=== PATIENT | female | born 1960 | race Caucasian/White ===

== ENCOUNTER 2017-09-02 07:38 | Emergency (ER) | payer OTHER ==
[2017-09-02 08:27] VITALS: BP 138/83
[2017-09-02] MEDS ORDERED: Albuterol/Ipratropium 3.0-0.5 MG/3 ML Neb Soln NEB ONE (09:02)
--- NOTE | 2017-09-02 09:04 | EDM.PDOC ---
ED HPI GENERAL MEDICAL PROBLEM - General Chief Complaint: General Stated Complaint: sinus pressure, allergies Time Seen by Provider: 09/02/17 08:18 Source of Information: Reports: Patient History Limitations: Reports: No Limitations - History of Present Illness INITIAL COMMENTS - FREE TEXT/NARRATIVE: Patient presents this morning to the emergency room with chronic complaints of sinusitis type symptoms. States she's had this current illness for approximately 1 month. She states that over the last week however she started to have fevers, some chills, and increasing pressure to the frontal and maxillary sinuses. Still she does state she's got some chronic seasonal allergies that she tells me are pretty much all year long. She also does tell me that she's had some asthma treatment in her history as well. She has no other complaints this morning. Onset: Other (over 1 month ago with worsening this week) Duration: Getting Worse Location: Reports: Face, Chest Quality: Reports: Ache, Pressure Severity: Moderate Associated Symptoms: Reports: cough w sputum, Diaphoresis, Fever/Chills, Shortness of Breath Frontal Headache Pain Score (Numeric/FACES): 4 - Related Data Allergies Allergy/AdvReac Type Severity Reaction Status Date / Time meclizine Allergy Cannot Verified 09/02/17 08:17 Remember Sulfa (Sulfonamide Allergy Hives Verified 09/02/17 08:17 Antibiotics) codeine AdvReac Nausea and Verified 09/02/17 08:17 Vomiting Home Meds: Home Meds Aspirin [Adult Low Dose Aspirin EC] 1 tab PO DAILY 12/12/14 [History] Hydrochlorothiazide 25 mg PO DAILY 12/12/14 [History] Metoprolol Tartrate [Lopressor] 1.5 tab PO BID 12/12/14 [History] Multivit-Min/FA/Lycopene/Lut [Centrum Silver] 1 tab PO DAILY 12/12/14 [History] metroNIDAZOLE [metroNIDAZOLE 0.75% Gel] 1 applic TOP DAILY 12/12/14 [History] ClonazePAM [KlonoPIN] 1 tab PO BID PRN 06/04/15 [History] Past Medical History Cardiovascular History: Reports: Hypertension Respiratory History: Reports: Asthma Other Respiratory History: borderline asthma. allergies Gastrointestinal History: Reports: Other (See Below) Other Gastrointestinal History: gastric reflux Musculoskeletal History: Reports: Arthritis Other Musculoskeletal History: arthritis - Past Surgical History HEENT Surgical History: Reports: Adenoidectomy, Tonsillectomy Female Surgical History: Reports: Tubal Ligation Social & Family History - Tobacco Use Smoking Status *Q: Never Smoker Years of Tobacco use: 14 Used Tobacco, but Quit: Yes Second Hand Smoke Exposure: Yes - Alcohol Use Days Per Week of Alcohol Use: 4 Number of Drinks Per Day: 2 Total Drinks Per Week: 8 - Recreational Drug Use Recreational Drug Use: No ED ROS GENERAL - Review of Systems Review Of Systems: See Below Constitutional: Reports: Fever, Chills, Diaphoresis HEENT: Reports: Ear Pain, Sinus Problem, Throat Pain Respiratory: Reports: Shortness of Breath Cardiovascular: Reports: No Symptoms Endocrine: Reports: No Symptoms GI/Abdominal: Reports: No Symptoms : Reports: No Symptoms Musculoskeletal: Reports: Neck Pain Skin: Reports: No Symptoms Neurological: Reports: Headache Psychiatric: Reports: No Symptoms Hematologic/Lymphatic: Reports: No Symptoms Immunologic: Reports: No Symptoms ED EXAM, GENERAL - Physical Exam Exam: See Below Exam Limited By: No Limitations General Appearance: Alert, WD/WN, No Apparent Distress Eye Exam: Bilateral Eye: EOMI, PERRL Ears: Normal TMs Nose: Normal Inspection Throat/Mouth: Normal Inspection, Normal Oropharynx Head: Atraumatic, Sinus Tenderness (maxillary and frontal tenderness) Neck: Normal Inspection, Supple, Non-Tender Respiratory/Chest: No Respiratory Distress, Lungs Clear, Normal Breath Sounds, No Accessory Muscle Use Cardiovascular: Normal Peripheral Pulses, Regular Rate, Rhythm, No Edema, No Gallop, No JVD, No Murmur, No Rub GI/Abdominal: Normal Bowel Sounds, Soft, Non-Tender Extremities: Normal Inspection, Normal Range of Motion, Non-Tender, No Pedal Edema, Normal Capillary Refill Neurological: Alert, Oriented, CN II-XII Intact, Normal Cognition, Normal Gait, Normal Reflexes, No Motor/Sensory Deficits Psychiatric: Normal Affect, Normal Mood Skin Exam: Warm, Dry, Intact, Normal Color, No Rash Lymphatic: No Adenopathy Course - Vital Signs Last Recorded V/S: Last Vital Signs Temp 36.2 C 09/02/17 07:45 Pulse 60 09/02/17 07:45 Resp 16 09/02/17 07:45 BP 138/83 09/02/17 07:45 Pulse Ox 97 09/02/17 07:45 - Orders/Labs/Meds Orders: Active Orders 24 hr Category Date Time Status INFLUENZA A+B AG SCREEN [RM] Stat Lab 09/02/17 08:31 Uncollected STREP SCRN A RAPID W CULT CONF [RM] Stat Lab 09/02/17 08:31 Uncollected Labs: Laboratory Tests 09/02/17 Range/Units 08:36 WBC 9.0 (4.0-10.0) x10^3/uL RBC 4.53 (4.00-5.50) x10^6/uL Hgb 13.9 (12.0-16.0) g/dL Hct 42.1 (33.0-47.0) % MCV 92.9 (78.0-93.0) fL MCH 30.7 (26.0-32.0) pg MCHC 33.0 (32.0-36.0) g/dL RDW Coeff of Jeri 13.2 (10.0-15.0) % Plt Count 256 (130-400) x10^3/uL Neut % (Auto) 63.4 (50.0-80.0) % Lymph % (Auto) 26.5 (25.0-50.0) % Conway % (Auto) 5.9 (2.0-11.0) % Eos % (Auto) 3.6 (0.0-4.0) % Baso % (Auto) 0.6 (0.2-1.2) % - Re-Assessments/Exams Free Text/Narrative Re-Assessment/Exam: 09/02/17 09:14 Review of CBC which does not indicate any sort of bacterial infection, rapid strep and influenza negative. Will have culture grown for the strep. Departure - Departure Time of Disposition: 09:00 Disposition: Home, Self-Care 01 Condition: Good Clinical Impression: Sinusitis chronic, frontal - Discharge Information Instructions: Sinusitis, Adult, [id number] Referrals: Roderick Rod PA-C [Primary Care Provider] - Additional Instructions: Stay well hydrated. We will call you with the strep culture results if antibiotic therapy is needed. Continue to use antihistamines or decongestants as needed including pseudaphed, zyrtec or claritin. You also should try a saline rinse or zackary pot. If you do this, do not use regular tap water. I have given you the prescription for augmentin. ONLY fill this if your symptoms continue to worsen, you begin to have worse fevers, chills, night sweats, or continued feeling of this going into your lungs. Please call us at any time with any questions or concerns. - Problem List & Annotations (1) Sinusitis chronic, frontal SNOMED Code(s): 92176336 Code(s): J32.1 - CHRONIC FRONTAL SINUSITIS Status: Acute Priority: Low Current Visit: Yes - Problem List Review Problem List Initiated/Reviewed/Updated: Yes - My Orders Last 24 Hours: My Active Orders 09/02/17 08:31 INFLUENZA A+B AG SCREEN [RM] Stat STREP SCRN A RAPID W CULT CONF [RM] Stat - Assessment/Plan Last 24 Hours: My Active Orders 09/02/17 08:31 INFLUENZA A+B AG SCREEN [RM] Stat STREP SCRN A RAPID W CULT CONF [RM] Stat Assessment:: acute sinusitis Plan: Stay well hydrated. We will call you with the strep culture results if antibiotic therapy is needed. Continue to use antihistamines or decongestants as needed including pseudaphed, zyrtec or claritin. You also should try a saline rinse or zackary pot. If you do this, do not use regular tap water. I have given you the prescription for augmentin. ONLY fill this if your symptoms continue to worsen, you begin to have worse fevers, chills, night sweats, or continued feeling of this going into your lungs. Please call us at any time with any questions or concerns.
== END 2017-09-02 09:45 | disposition home or self-care (01) ==
LOC: VM.ED 07:38
DX: J32.1 Chronic frontal sinusitis (principal); I10 Essential (primary) hypertension; J45.909 Unspecified asthma, uncomplicated; M19.90 Unspecified osteoarthritis, unspecified site; Z98.51 Tubal ligation status; Z98.890 Other specified postprocedural states; Z79.82 Long term (current) use of aspirin; Z79.899 Other long term (current) drug therapy; Z88.5 Allergy status to narcotic agent; Z88.2 Allergy status to sulfonamides; Z88.8 Allergy status to other drugs, medicaments and biological substances
CPT/HCPCS: 36415; 85025; 87081; 87804; 87880; 94640; 99283

== ENCOUNTER 2020-05-03 14:18 | Emergency (ER) | payer OTHER ==
[2020-05-03] MEDS ORDERED: Sodium Chloride 0.9% 10 ML Syringe FLUSH PRN (14:42)
--- NOTE | 2020-05-03 14:47 | CT ---
[id number] CT/CT Head Stroke Protocol EXAM: NONCONTRAST HEAD CT INDICATION: STROKE CODE. COMPARISON: September 21, 2017. DISCUSSION: There is an acute 6 x 4.5 x 3 cm intraparenchymal hemorrhage in the left frontal lobe with surrounding vasogenic edema and associated effacement of the left frontal sulci and rightward midline shift of about 6 mm anteriorly. Mild associated effacement of the frontal horn of the left lateral ventricle and to a lesser extent the frontal horn of the right lateral ventricle. No hydrocephalus, extra-axial collection or acute territorial infarct is identified. The orbits and paranasal sinuses are unremarkable. Results called at time of dictation. IMPRESSION: 1. Acute 6 x 4.5 x 3 cm intraparenchymal hemorrhage involving the left frontal lobe with resulting sulcal effacement and 6 mm rightward midline shift. Raymon Kendall MD 05/03/20 [id number] Thank you for allowing us to participate in the care of your patient.
[2020-05-03 14:52] LABS: ANION GAP 16.4 mmol/L (10-20); CHLORIDE,CL 101 mmol/L (98-107); SODIUM,NA 138 mmol/L (136-145)
[2020-05-03] MEDS ORDERED: niCARdipine HCl 25 MG in Sodium Chloride 0.9% 240 ML IV SCH (15:00)
--- NOTE | 2020-05-03 15:11 | EDM.PDOC ---
ED HPI GENERAL MEDICAL PROBLEM - General Chief Complaint: Neuro Symptoms/Deficits Stated Complaint: STROKE CODE Time Seen by Provider: 05/03/20 14:18 Source of Information: Reports: EMS, Family History Limitations: Reports: Altered Mental Status - History of Present Illness INITIAL COMMENTS - FREE TEXT/NARRATIVE: Patient presents to ER with altered mental status, stroke code. relates on Monday evening patient complained of a severe headache and has had lingering headache since. Yesterday, wasn't her normal self, felt like she was getting the flu. States wasn't as talkative as normal but not as confused as today. Slept much of day yesterday, did eat and take her pills. Does not think she has done either today. He had left the house for a while and when he came home, she couldn't communicate much at all. She was still up and able to ambulate but not answering questions right at all. She holds her hand to her head but doesn't answer questions appropriately and answers only with few words. No recent trauma, states has had a few concussions in the past but were year ago. Does take meds for her blood pressure and is normally compliant with that. Had not been running a fever, complaining of shortness of breath or any chest pain prior. No incontinence of urine or bowel. Onset: Gradual Duration: Day(s):, Getting Worse Location: Reports: Head Associated Symptoms: Reports: Confusion, Headaches. Denies: Cough, Fever/Chills , Nausea/Vomiting, Shortness of Breath - Related Data Allergies Allergy/AdvReac Type Severity Reaction Status Date / Time meclizine Allergy Cannot Verified 09/02/17 08:17 Remember Sulfa (Sulfonamide Allergy Hives Verified 09/02/17 08:17 Antibiotics) codeine AdvReac Nausea and Verified 09/02/17 08:17 Vomiting lisinopril AdvReac Cough Verified 11/09/18 12:04 Home Meds: Home Meds Metoprolol Tartrate [Lopressor] 25 mg PO BID 12/12/14 [History] Aspirin 325 mg PO DAILY 09/02/17 [History] Cetirizine [ZyrTEC] 10 mg PO BEDTIME 09/02/17 [History] Fluticasone Propionate [Flonase] 0 sprays NASBOTH BEDTIME 09/02/17 [History] Ibuprofen [Advil] 200 mg PO DAILY 09/02/17 [History] L.acidoph,Paracasei, B.lactis [Probiotic] 1 each PO DAILY 09/02/17 [History] Loratadine 10 mg PO DAILY 09/02/17 [History] Losartan [Cozaar] 25 mg PO BEDTIME 09/02/17 [History] Losartan [Cozaar] 50 mg PO DAILY 09/02/17 [History] Montelukast [Singulair] 10 mg PO DAILY 09/02/17 [History] Omeprazole 20 mg PO DAILY 09/02/17 [History] Melatonin 6 mg PO BEDTIME 11/09/18 [History] Ranitidine HCl [Ranitidine] 150 mg PO BID 11/09/18 [History] Past Medical History HEENT History: Reports: Allergic Rhinitis Cardiovascular History: Reports: High Cholesterol, Hypertension Other Cardiovascular History: aortic dilitation Respiratory History: Reports: Asthma Other Respiratory History: borderline asthma. allergies Gastrointestinal History: Reports: GERD, Other (See Below) Other Gastrointestinal History: gastric reflux. 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: Musculoskeletal History: Reports: Arthritis, Other (See Below) Other Musculoskeletal History: arthritis Neurological History: Reports: Other (See Below) Other Neuro History: insomnia Psychiatric History: Reports: Anxiety, Depression Oncologic (Cancer) History: Reports: Cervix - Past Surgical History HEENT Surgical History: Reports: Adenoidectomy, Tonsillectomy Cardiovascular Surgical History: Reports: None GI Surgical History: Reports: EGD Female Surgical History: Reports: Tubal Ligation Musculoskeletal Surgical History: Reports: Arthroscopic Knee, Other (See Below) Social & Family History - Tobacco Use Smoking Status *Q: Never Smoker ED ROS GENERAL - Review of Systems Review Of Systems: See Below (review of symptoms obtained per ) Constitutional: Reports: Malaise, Fatigue. Denies: Fever, Chills, Weakness HEENT: Denies: Ear Pain, Rhinitis, Throat Pain Respiratory: Denies: Shortness of Breath Cardiovascular: Denies: Chest Pain, Edema Endocrine: Reports: Fatigue GI/Abdominal: Denies: Abdominal Pain, Nausea, Vomiting : Reports: No Symptoms Musculoskeletal: Reports: No Symptoms Neurological: Reports: Confusion, Headache, Trouble Speaking, Change in Speech. Denies: Difficulty Walking, Gait Disturbance Psychiatric: Reports: No Symptoms ED EXAM, NEURO - Physical Exam Exam: See Below Exam Limited By: Altered Mental Status General Appearance: Alert, WD/WN Eye Exam: Bilateral Eye: EOMI, PERRL Ears: Normal External Exam, Normal TMs Nose: Normal Inspection, Normal Mucosa, No Blood Throat/Mouth: Normal Inspection, Normal Oropharynx Head Exam: Normocephalic Neck: Normal Inspection, Supple, Non-Tender Respiratory/Chest: No Respiratory Distress, Lungs Clear, Normal Breath Sounds Cardiovascular: Regular Rate, Rhythm GI/Abdominal: Normal Bowel Sounds, Soft, Non-Tender Neurological: Alert, Normal Mood/Affect, Normal Gait, Other (patient alert. NIH scale 6+. Does not follow all commands well. Does follow finger for EOM but will not close eyes or raise eyebrows when asked. Moves all extremites spontaneously, can ambulate. Strengths are equal. Does not follow command for DANILO, point to point and pronator drift but removed her own pajamas to put on gown. Answers all questions with yes/no, I'm sorry but not appropriate to question. ) Extremities: Normal Inspection, No Pedal Edema Course - Orders/Labs/Meds Orders: Active Orders 24 hr Category Date Time Status Assess Neurological Status [RC] CONTINUOUS Care 05/03/20 14:42 Active Cardiac Monitoring [RC] CONTINUOUS Care 05/03/20 14:42 Active Communication Order [RC] STAT Care 05/03/20 14:42 Active Height and Weight [RC] UPON Care 05/03/20 14:42 Active NIH Stroke Scale [RC] Q15M Care 05/03/20 14:42 Active NIH Stroke Scale [RC] STAT Care 05/03/20 14:42 Active Nursing Bedside Swallow Screen [RC] STAT Care 05/03/20 14:42 Active Oxygen Therapy, ED [RC] ASDIRECTED Care 05/03/20 14:42 Active Vital Signs [RC] Q15M Care 05/03/20 14:42 Active INR,PT,PROTHROMBIN TIME [COAG] Routine Lab 05/03/20 14:32 Received PTT,PARTIAL THROMBOPLSTIN TIME [COAG] Routine Lab 05/03/20 14:32 Received Sodium Chloride 0.9% [Saline Flush] Med 05/03/20 14:42 Active 10 ml FLUSH ASDIRECTED PRN niCARdipine 25 MG in Normal Saline @ 5 MG/HR(250ml) Med 06/14/20 15:00 Ordered niCARdipine HCl [Nicardipine HCl] 25 mg Sodium Chloride 0.9% [Normal Saline] 240 ml IV TITRATE Peripheral IV Insertion Adult [OM.PC] Stat Oth 05/03/20 14:42 Ordered Peripheral IV Insertion Adult [OM.PC] Stat Oth 05/03/20 14:42 Ordered Resuscitation Status Stat Resus Stat 05/03/20 14:42 Ordered Medication Orders Nicardipine HCl 25 mg/ Sodium (Chloride) 250 mls @ 50 mls/hr IV TITRATE ALTAGRACIA; Protocol Sodium Chloride (Saline Flush) 10 ml FLUSH ASDIRECTED PRN PRN Reason: Keep Vein Open Labs: Laboratory Tests 05/03/20 05/03/20 Range/Units 14:32 14:32 WBC 11.0 H (4.0-10.0) x10^3/uL RBC 4.35 (4.00-5.50) x10^6/uL Hgb 13.9 (12.0-16.0) g/dL Hct 40.7 (33.0-47.0) % MCV 93.6 H (78.0-93.0) fL MCH 32.0 (26.0-32.0) pg MCHC 34.2 (32.0-36.0) g/dL RDW Coeff of Jeri 12.5 (10.0-15.0) % Plt Count 262 (130-400) x10^3/uL Neut % (Auto) 83.2 H (50.0-80.0) % Lymph % (Auto) 11.7 L (25.0-50.0) % [place] % (Auto) 4.7 (2.0-11.0) % Eos % (Auto) 0.1 (0.0-4.0) % Baso % (Auto) 0.3 (0.2-1.2) % Sodium 138 (136-145) mmol/L Potassium 4.4 (3.5-5.1) mmol/L Chloride 101 (98-107) mmol/L Carbon Dioxide 25 (21-32) mmol/L Anion Gap 16.4 (10-20) mmol/L BUN 12 (7-18) mg/dL Creatinine 1.0 (0.55-1.02) mg/dL Est Cr Clr Drug Dosing TNP Estimated GFR (MDRD) 57 Glucose 99 (74-106) mg/dL Calcium 9.1 (8.5-10.1) mg/dL Meds: Medications Generic Name Dose Route Start Last Admin Trade Name Viji PRN Reason Stop Dose Admin Nicardipine HCl 25 mg/ Sodium 250 mls @ 50 mls/hr 05/03/20 15:00 Chloride IV TITRATE ALTAGRACIA Protocol 5 MG/HR Sodium Chloride 10 ml 05/03/20 14:42 Saline Flush FLUSH ASDIRECTED PRN Keep Vein Open - Re-Assessments/Exams Free Text/Narrative Re-Assessment/Exam: 05/03/20 1420-Patient taken directly to CT for head scan due to symptoms noted by EMS. Area of hemorrhage noted in frontal lobe. Labs obtained. NIH scale 6+ , does not follow command well. 1450- Labs essentially normal. CT scan official read shows intraparenchymal frontal hemorrhage. NIH scale unchanged. Continues with expressive aphasia. Does not follow command. Motor strength is strong, equal. Blood pressure 160/ 88. Contacted [facility] and spoke with Dr. Arango in regards to status. Recommended Nicardipine drip to keep blood pressure under 140/90. Agreed to accept the patient in transfer. Spoke with Yifan about patient status. Will transfer ALS to [facility]. Departure - Departure Time of Disposition: 15:10 Disposition: DC/Tfer to Acute Hospital 02 Condition: Undetermined Clinical Impression: CVA (cerebrovascular accident due to intracerebral hemorrhage) Qualifiers: Intracerebral hemorrhage etiology: nontraumatic - Discharge Information *PRESCRIPTION DRUG MONITORING PROGRAM REVIEWED*: No *COPY OF PRESCRIPTION DRUG MONITORING REPORT IN PATIENT RHONDA: No Referrals: Roderick Rod PA-C [Primary Care Provider] - Additional Instructions: Transfer to [facility] to Dr. Macedo - My Orders Last 24 Hours: My Active Orders 05/03/20 14:32 INR,PT,PROTHROMBIN TIME [COAG] Routine PTT,PARTIAL THROMBOPLSTIN TIME [COAG] Routine 05/03/20 14:42 Assess Neurological Status [RC] CONTINUOUS Cardiac Monitoring [RC] CONTINUOUS Communication Order [RC] STAT Height and Weight [RC] UPON NIH Stroke Scale [RC] Q15M NIH Stroke Scale [RC] STAT Nursing Bedside Swallow Screen [RC] STAT Oxygen Therapy, ED [RC] ASDIRECTED Vital Signs [RC] Q15M Sodium Chloride 0.9% [Saline Flush] 10 ml FLUSH ASDIRECTED PRN Peripheral IV Insertion Adult [OM.PC] Stat Peripheral IV Insertion Adult [OM.PC] Stat Resuscitation Status Stat 05/03/20 15:00 niCARdipine 25 MG in Normal Saline @ 5 MG/HR(250ml) niCARdipine HCl [ Nicardipine HCl] 25 mg Sodium Chloride 0.9% [Normal Saline] 240 ml IV TITRATE - Assessment/Plan Last 24 Hours: My Active Orders 05/03/20 14:32 INR,PT,PROTHROMBIN TIME [COAG] Routine PTT,PARTIAL THROMBOPLSTIN TIME [COAG] Routine 05/03/20 14:42 Assess Neurological Status [RC] CONTINUOUS Cardiac Monitoring [RC] CONTINUOUS Communication Order [RC] STAT Height and Weight [RC] UPON NIH Stroke Scale [RC] Q15M NIH Stroke Scale [RC] STAT Nursing Bedside Swallow Screen [RC] STAT Oxygen Therapy, ED [RC] ASDIRECTED Vital Signs [RC] Q15M Sodium Chloride 0.9% [Saline Flush] 10 ml FLUSH ASDIRECTED PRN Peripheral IV Insertion Adult [OM.PC] Stat Peripheral IV Insertion Adult [OM.PC] Stat Resuscitation Status Stat 05/03/20 15:00 niCARdipine 25 MG in Normal Saline @ 5 MG/HR(250ml) niCARdipine HCl [ Nicardipine HCl] 25 mg Sodium Chloride 0.9% [Normal Saline] 240 ml IV TITRATE
[2020-05-03 15:21] LABS: PTT,PARTIAL THROMBOPLSTIN TIME 25.7 SEC (25.6-32.8)
== END 2020-05-03 15:12 | disposition short-term general hospital (02) ==
LOC: VM.ED 14:18
DX: I62.9 Nontraumatic intracranial hemorrhage, unspecified (principal); I10 Essential (primary) hypertension; J45.909 Unspecified asthma, uncomplicated; K21.9 Gastro-esophageal reflux disease without esophagitis; Z88.8 Allergy status to other drugs, medicaments and biological substances; Z88.2 Allergy status to sulfonamides; Z88.5 Allergy status to narcotic agent; Z79.82 Long term (current) use of aspirin; Z79.899 Other long term (current) drug therapy
CPT/HCPCS: 70450; 80048; 84484; 85025; 85610; 85730; 93005; 96374; 99285-25; J7050

== ENCOUNTER 2020-07-11 05:50 | Observation (INO) | payer OTHER ==
[2020-07-11] MEDS ORDERED: Sodium Chloride 0.9% 10 ML Syringe FLUSH PRN (06:02)
--- NOTE | 2020-07-11 06:14 | EDM.PDOC ---
ED HPI GENERAL MEDICAL PROBLEM - General Chief Complaint: Neuro Symptoms/Deficits Stated Complaint: vertigo Time Seen by Provider: 07/11/20 05:50 Source of Information: Reports: Patient History Limitations: Reports: No Limitations - History of Present Illness INITIAL COMMENTS - FREE TEXT/NARRATIVE: Patient comes into the emergency department with complaints of dizziness. Patient states dizziness started approximately 0.5 hours ago. Patient states that she was lying in bed and when she rolled over she became extremely dizzy and was nauseated. She got up and she states that the room was spinning and ended up ambulating to the bathroom and states that she was nauseated. She does feel that the nausea has resolved but states that she is still dizzy when she turns her head to the left. She also states when she gets up to ambulate notices more dizziness. Patient became extremely concerned regarding this for she recently had a hemorrhagic stroke on 05-03-2020 after having what she states of vague symptoms for 2 or 3 days prior to her emergency room visit and emergency transfer and surgical intervention. States that she has had one episode like this in the past prior to her stroke of a vertigo type symptoms. They did give her meclizine and she states that she got very lightheaded and almost feels as if she was unable to walk due to the euphoria feeling. States prior to bed last night she did have a bowl of cereal and a couple Oreos which is not a normal eating habit prior to bed. Patient states that the symptoms do feel better if she is just resting and not turning her head and they do progress and get worse as stated above when she turns her head to the left or stands up. Patient also does have seasonal allergies states ever since her stroke that she has not had a significant amount of symptoms. Denies any recent exposure to COVID-19 or same positive to COVID-19. Patient states she has felt relatively well since her last stroke. Onset: Sudden Improves with: Reports: Rest Worsens with: Reports: Movement Context: Reports: Other Associated Symptoms: Reports: Nausea/Vomiting. Denies: Confusion, Diaphoresis, Fever/Chills, Loss of Appetite, Malaise, Seizure - Related Data Allergies Allergy/AdvReac Type Severity Reaction Status Date / Time meclizine Allergy Cannot Verified 05/03/20 15:55 Remember Sulfa (Sulfonamide Allergy Hives Verified 06/14/20 15:55 Antibiotics) codeine AdvReac Nausea and Verified 05/03/20 15:55 Vomiting lisinopril AdvReac Cough Verified 05/03/20 15:55 Home Meds: Home Meds Losartan [Cozaar] 50 mg PO BID 09/02/17 [History] Omeprazole 20 mg PO DAILY 09/02/17 [History] amLODIPine [Norvasc] 5 mg PO BID 07/11/20 [History] carvediloL [Coreg] 25 mg PO BID 07/11/20 [History] levETIRAcetam [Keppra] 1,000 mg PO BID 07/11/20 [History] Past Medical History HEENT History: Reports: Allergic Rhinitis Cardiovascular History: Reports: High Cholesterol, Hypertension Other Cardiovascular History: aortic dilitation Respiratory History: Reports: Asthma Other Respiratory History: borderline asthma. allergies Gastrointestinal History: Reports: GERD, Other (See Below) Other Gastrointestinal History: gastric reflux. 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: Musculoskeletal History: Reports: Arthritis, Other (See Below) Other Musculoskeletal History: arthritis Neurological History: Reports: Other (See Below) Other Neuro History: insomnia Psychiatric History: Reports: Anxiety, Depression Oncologic (Cancer) History: Reports: Cervix - Past Surgical History HEENT Surgical History: Reports: Adenoidectomy, Tonsillectomy Cardiovascular Surgical History: Reports: None GI Surgical History: Reports: EGD Female Surgical History: Reports: Tubal Ligation Musculoskeletal Surgical History: Reports: Arthroscopic Knee, Other (See Below) ED ROS GENERAL - Review of Systems Review Of Systems: Comprehensive ROS is negative, except as noted in HPI. Constitutional: Reports: No Symptoms HEENT: Reports: No Symptoms Respiratory: Reports: No Symptoms Cardiovascular: Reports: No Symptoms Endocrine: Reports: No Symptoms GI/Abdominal: Reports: No Symptoms : Reports: No Symptoms Musculoskeletal: Reports: No Symptoms Skin: Reports: No Symptoms Neurological: Denies: Confusion, Dizziness, Headache, Numbness, Syncope, Tremors, Trouble Speaking, Difficulty Walking, Weakness, Change in Speech, Gait Disturbance Psychiatric: Reports: No Symptoms Hematologic/Lymphatic: Reports: No Symptoms Immunologic: Reports: No Symptoms ED EXAM, GENERAL - Physical Exam Exam: See Below Exam Limited By: No Limitations General Appearance: Alert, WD/WN, No Apparent Distress Eye Exam: Bilateral Eye: EOMI, PERRL Ear Exam: Bilateral Ear: Auricle Normal, Canal Normal, TM Bulging Nose: Normal Inspection, Normal Mucosa, No Blood Head: Atraumatic, Normocephalic Neck: Normal Inspection, Supple, Non-Tender, Full Range of Motion Respiratory/Chest: No Respiratory Distress, Lungs Clear, Normal Breath Sounds, No Accessory Muscle Use, Chest Non-Tender Cardiovascular: Normal Peripheral Pulses, Regular Rate, Rhythm, No Edema Back Exam: Normal Inspection, Full Range of Motion Extremities: Normal Inspection, Normal Range of Motion, Non-Tender, Normal Capillary Refill Neurological: Alert, Oriented, CN II-XII Intact, Normal Gait. No: Inattentive, Confused, Disoriented, Abnormal Gait Psychiatric: Normal Affect, Normal Mood Skin Exam: Warm, Dry, Intact, Normal Color, No Rash Course - Vital Signs Last Recorded V/S: Last Vital Signs Temp 36.6 C 07/11/20 06:00 Pulse 66 07/11/20 06:00 Resp 18 07/11/20 06:00 BP 129/75 07/11/20 06:00 Pulse Ox 100 07/11/20 06:00 - Orders/Labs/Meds Orders: Active Orders 24 hr Category Date Time Status Admission Status [Patient Status] [ADT] Routine ADT 07/11/20 08:18 Ordered EKG Documentation Completion [RC] STAT Care 07/11/20 06:02 Active POC Glucose [Blood Glucose Check, Bedside] [RC] ONETIME Care 07/11/20 06:38 Active Sodium Chloride 0.9% [Saline Flush] Med 07/11/20 06:02 Active 10 ml FLUSH ASDIRECTED PRN Peripheral IV Insertion Adult [OM.PC] Stat Oth 07/11/20 06:02 Ordered Medication Orders Sodium Chloride (Saline Flush) 10 ml FLUSH ASDIRECTED PRN PRN Reason: Keep Vein Open Labs: Laboratory Tests 07/11/20 07/11/20 07/11/20 Range/Units 06:03 06:12 06:27 WBC 3.8 L (4.0-10.0) x10^3/uL RBC 4.22 (4.00-5.50) x10^6/uL Hgb 12.8 (12.0-16.0) g/dL Hct 37.9 (33.0-47.0) % MCV 89.8 D (78.0-93.0) fL MCH 30.3 (26.0-32.0) pg MCHC 33.8 (32.0-36.0) g/dL RDW Coeff of Jeri 12.5 (10.0-15.0) % Plt Count 262 (130-400) x10^3/uL Neut % (Auto) 27.1 L (50.0-80.0) % Lymph % (Auto) 57.7 H (25.0-50.0) % Charlton % (Auto) 10.8 (2.0-11.0) % Eos % (Auto) 3.1 (0.0-4.0) % Baso % (Auto) 1.3 H (0.2-1.2) % PT (9.5-12.3) SEC INR (2.0-3.5) Sodium (136-145) mmol/L Potassium (3.5-5.1) mmol/L Chloride (98-107) mmol/L Carbon Dioxide (21-32) mmol/L Anion Gap (10-20) mmol/L BUN (7-18) mg/dL Creatinine (0.55-1.02) mg/dL Est Cr Clr Drug Dosing mL/min Estimated GFR (MDRD) Glucose (74-106) mg/dL POC Glucose 82 (74-106) mg/dL Calcium (8.5-10.1) mg/dL Corrected Calcium (8.5-10.1) mg/dL Total Bilirubin (0.2-1.0) mg/dL AST (15-37) U/L ALT (14-59) U/L Alkaline Phosphatase (46-116) U/L Troponin I (<=0.056) ng/mL NT-Pro-B Natriuret Pep (<=125) pg/mL Total Protein (6.4-8.2) g/dL Albumin (3.4-5.0) g/dL Globulin Albumin/Globulin Ratio Urine Color Yellow (YELLOW) Urine Appearance Clear (CLEAR) Urine pH 7.0 (5.0-8.0) Ur Specific [place] 1.025 Urine Protein Negative (NEGATIVE) mg/dL Urine Glucose (UA) Negative (NEGATIVE) mg/dL Urine Ketones Negative (NEGATIVE) mg/dL Urine Occult Blood Negative (NEGATIVE) Urine Nitrite Negative (NEGATIVE) Urine Bilirubin Negative (NEGATIVE) Urine Urobilinogen 0.2 (0.2) EU/dL Ur Leukocyte Esterase Negative (NEGATIVE) 07/11/20 07/11/20 Range/Units 06:27 06:27 WBC (4.0-10.0) x10^3/uL RBC (4.00-5.50) x10^6/uL Hgb (12.0-16.0) g/dL Hct (33.0-47.0) % MCV (78.0-93.0) fL MCH (26.0-32.0) pg MCHC (32.0-36.0) g/dL RDW Coeff of Jeri (10.0-15.0) % Plt Count (130-400) x10^3/uL Neut % (Auto) (50.0-80.0) % Lymph % (Auto) (25.0-50.0) % Charlton % (Auto) (2.0-11.0) % Eos % (Auto) (0.0-4.0) % Baso % (Auto) (0.2-1.2) % PT 10.0 (9.5-12.3) SEC INR 0.9 L (2.0-3.5) Sodium 141 (136-145) mmol/L Potassium 4.1 (3.5-5.1) mmol/L Chloride 102 (98-107) mmol/L Carbon Dioxide 31 (21-32) mmol/L Anion Gap 12.1 (10-20) mmol/L BUN 8 (7-18) mg/dL Creatinine 0.9 (0.55-1.02) mg/dL Est Cr Clr Drug Dosing 54.99 mL/min Estimated GFR (MDRD) > 60 Glucose 98 (74-106) mg/dL POC Glucose (74-106) mg/dL Calcium 9.1 (8.5-10.1) mg/dL Corrected Calcium 9.34 (8.5-10.1) mg/dL Total Bilirubin 0.4 (0.2-1.0) mg/dL AST 19 (15-37) U/L ALT 26 (14-59) U/L Alkaline Phosphatase 100 (46-116) U/L Troponin I < 0.017 (<=0.056) ng/mL NT-Pro-B Natriuret Pep 54 (<=125) pg/mL Total Protein 7.4 (6.4-8.2) g/dL Albumin 3.7 (3.4-5.0) g/dL Globulin 3.7 Albumin/Globulin Ratio 1.00 Urine Color (YELLOW) Urine Appearance (CLEAR) Urine pH (5.0-8.0) Ur Specific [place] Urine Protein (NEGATIVE) mg/dL Urine Glucose (UA) (NEGATIVE) mg/dL Urine Ketones (NEGATIVE) mg/dL Urine Occult Blood (NEGATIVE) Urine Nitrite (NEGATIVE) Urine Bilirubin (NEGATIVE) Urine Urobilinogen (0.2) EU/dL Ur Leukocyte Esterase (NEGATIVE) Meds: Medications Generic Name Dose Route Start Last Admin Trade Name Freq PRN Reason Stop Dose Admin Sodium Chloride 10 ml 07/11/20 06:02 Saline Flush FLUSH ASDIRECTED PRN Keep Vein Open Departure - Departure Time of Disposition: 08:15 Disposition: Refer to Observation Condition: Good Clinical Impression: Vertigo - Discharge Information *PRESCRIPTION DRUG MONITORING PROGRAM REVIEWED*: Not Applicable *COPY OF PRESCRIPTION DRUG MONITORING REPORT IN PATIENT RHONDA: Not Applicable Referrals: PCP,None [Ordering Only Provider] - Forms: ED Department Discharge Sepsis Event Note (ED) - Focused Exam Vital Signs: Vital Signs Temp Pulse Resp BP Pulse Ox 07/11/20 06:00 36.6 C 66 18 129/75 100 - My Orders Last 24 Hours: My Active Orders 07/11/20 06:02 EKG Documentation Completion [RC] STAT Sodium Chloride 0.9% [Saline Flush] 10 ml FLUSH ASDIRECTED PRN Peripheral IV Insertion Adult [OM.PC] Stat 07/11/20 06:38 POC Glucose [Blood Glucose Check, Bedside] [RC] ONETIME 07/11/20 08:18 Admission Status [Patient Status] [ADT] Routine - Assessment/Plan Admission H&P: Please use this note as an admission H&P Last 24 Hours: My Active Orders 07/11/20 06:02 EKG Documentation Completion [RC] STAT Sodium Chloride 0.9% [Saline Flush] 10 ml FLUSH ASDIRECTED PRN Peripheral IV Insertion Adult [OM.PC] Stat 07/11/20 06:38 POC Glucose [Blood Glucose Check, Bedside] [RC] ONETIME 07/11/20 08:18 Admission Status [Patient Status] [ADT] Routine Assessment:: 1. vertigo 2. New CT findings- 3 mm hyperdensity 3. Nausea 4. Recent stroke- 05/03/2020 emergent craniotomy Plan: 1. Labs completed in the ER. Results reviewed with the patient 2. IV initiated in the emergency department 3. EKG completed in the ER 4. UA completed in ER 5. Anti-emetic offered in the ER to help with nausea 6. Head CT completed in the ER. Results reviewed with the patient 7. Consultation with DR. Aviles neurovascular surgeon. He was actually the MD who completed the patient emergent craniotomy and his recommendation is to repeat CT scan in 24 hours. He does not feel the findings today are acute but would suggest follow up to be certain. If symptoms progress he recommends CT in 12 hours. 8. Patient will be admitted to observation for further medical management 9. Patient and nursing staff was updated regarding the plan of care 10. Patient and family are agreeable to the above plan of care 11. All questions and concerns were addressed with the patient and family prior to discharge
[2020-07-11 07:06] LABS: ANION GAP 12.1 mmol/L (10-20); CHLORIDE,CL 102 mmol/L (98-107); SODIUM,NA 141 mmol/L (136-145)
--- NOTE | 2020-07-11 08:16 | CT ---
[id number] CT/CT Head WO IV EXAM: NONCONTRAST HEAD CT INDICATION: DIZZY, STROKE-BLEED WITHIN 2-3 MONTHS AGO COMPARISON: May 03, 2020. DISCUSSION: Interval left frontal craniotomy with evacuation of a frontal lobe hematoma. There is a 35 x 30 mm area of encephalomalacia at the site of resection. Deep to the craniotomy flap there is a subdural hematoma with a maximum diameter of about 3 mm without significant mass effect resulting midline shift. No new areas of intraparenchymal hemorrhage. Mild chronic small vessel ischemic changes. No hydrocephalus or acute territorial infarct. Small right maxillary sinus mucosal retention cyst. Small mucosal retention cyst within the right maxillary sinus. IMPRESSION: 1. Interval left frontal craniotomy with evacuation of intraparenchymal hematoma. There is a 3 mm subdural hematoma deep to the craniotomy site. Raymon Kendall MD 07/11/20 0815 Thank you for allowing us to participate in the care of your patient.
[2020-07-11] MEDS ORDERED: Promethazine 25 MG Tab PO PRN (08:42)
[2020-07-11] MEDS ORDERED: Acetaminophen 500 MG Tab PO PRN ×2 (10:07→11:30)
[2020-07-11] MEDS: CARVEDILOL 25 MG PO SCH (19:10)
[2020-07-11] MEDS: LEVETIRACETAM 1000 MG PO SCH (20:26)
[2020-07-12 05:50] VITALS: BP 97/52; PULSE 68
[2020-07-12] MEDS ORDERED: Omeprazole 20 MG Cap.CR PO SCH (07:00)
--- NOTE | 2020-07-12 07:49 | CT ---
[id number] CT/CT Head WO IV EXAM: NONCONTRAST HEAD CT INDICATION: ABNORMAL 3MM DENSITY-REPEAT IN 24 HOURS PER NEURO COMPARISON: July 11, 2020. DISCUSSION: Stable left frontal craniotomy changes with underlying left frontal encephalomalacia and a 3 mm extra-axial hematoma deep to the craniotomy flap. Stable mild chronic small vessel ischemic changes. No mass effect, midline shift, hydrocephalus, new areas of hemorrhage or acute territorial infarct is identified. Stable small right maxillary sinus mucosal retention cyst. IMPRESSION: 1. The 3 mm extra-axial hematoma deep to the left frontal craniotomy site is stable relative to yesterday's examination. Raymon Kendall MD 07/12/20 0748 Thank you for allowing us to participate in the care of your patient.
--- NOTE | 2020-07-12 08:30 | PCM.PN ---
- General Info Date of Service: 07/12/20 Admission Dx/Problem (Free Text): 1)Vertigo 2)Recent CVA S/P Craniotomy 3)Allergic Rhinitis Subjective Update: Patient ready to go home. Still having occasional balance issue and dizziness, but much better than yesterday. Patient does report that allergies this time of year are the worst for her and that may be contributing to her sx also. Follow up CT report received and unchanged. Functional Status: Reports: Tolerating Diet, Ambulating - Review of Systems General: Reports: No Symptoms HEENT: Reports: Other (Allergies) Pulmonary: Reports: No Symptoms Cardiovascular: Reports: No Symptoms Gastrointestinal: Reports: No Symptoms Genitourinary: Reports: No Symptoms Musculoskeletal: Reports: No Symptoms Skin: Reports: No Symptoms Neurological: Reports: Dizziness, Difficulty Walking (mild) Psychiatric: Reports: No Symptoms - Patient Data Vitals - Most Recent: Last Vital Signs Temp 36.8 C 07/12/20 05:49 Pulse 68 07/12/20 05:49 Resp 18 07/12/20 05:49 BP 97/52 L 07/12/20 05:49 Pulse Ox 99 07/12/20 05:49 Weight - Most Recent: 68.039 kg I&O - Last 24 Hours: Intake & Output 07/11/20 07/12/20 07/12/20 22:59 06:59 14:59 Intake Total 800 300 440 Balance 800 300 440 Med Orders - Current: Current Medications Acetaminophen (Tylenol Extra Strength) 1,000 mg PO Q6H PRN PRN Reason: Pain Amlodipine Besylate (Norvasc) 5 mg PO BID [facility] [place] Last Admin: 07/11/20 20:23 Dose: 5 mg Documented by: Carvedilol (Coreg) 25 mg PO BIDMEALS [facility] [place] Last Admin: 07/11/20 19:10 Dose: 25 mg Documented by: Losartan Potassium (Cozaar) 50 mg PO BID [facility] [place] Last Admin: 07/11/20 20:27 Dose: 50 mg Documented by: Levetiracetam ( Keppra) 1,000 Mg Tab Own Med 0 mg PO BID [facility] [place] Last Admin: 07/11/20 20:26 Dose: 1,000 mg Documented by: Omeprazole (Omeprazole) 20 mg PO ACBRK [facility] [place] Last Admin: 07/12/20 06:22 Dose: 20 mg Documented by: Promethazine HCl (Phenergan) 50 mg PO Q6H PRN PRN Reason: nausea, able to take PO Sodium Chloride (Saline Flush) 10 ml FLUSH ASDIRECTED PRN PRN Reason: Keep Vein Open Last Admin: 07/12/20 06:24 Dose: 10 ml Documented by: Discontinued Medications Acetaminophen (Tylenol Extra Strength) 1,000 mg PO Q4H PRN PRN Reason: Pain - Exam General: Alert, Oriented HEENT: Pupils Equal, Mucous Membr. Moist/Dows Neck: Supple Lungs: Clear to Auscultation, Normal Respiratory Effort Cardiovascular: Regular Rate, Regular Rhythm GI/Abdominal Exam: Normal Bowel Sounds, Soft, Non-Tender (Female) Exam: Deferred Back Exam: Normal Inspection Extremities: Normal Inspection, Normal Range of Motion, No Pedal Edema, Normal Capillary Refill Skin: Warm, Dry, Intact Neurological: No New Focal Deficit, Normal Speech Psy/Mental Status: Alert, Normal Affect, Normal Mood Sepsis Event Note - Evaluation Sepsis Screening Result: No Definite Risk - Focused Exam Vital Signs: Vital Signs Temp Pulse Resp BP BP Pulse Ox 07/12/20 05:49 36.8 C 68 18 97/52 L 99 07/12/20 02:00 36.7 C 67 18 102/59 L 97 07/11/20 21:43 36.1 C 64 16 110/69 97 07/11/20 20:27 103/53 L - Problem List Review Problem List Initiated/Reviewed/Updated: Yes - My Orders Last 24 Hours: My Active Orders 07/12/20 08:18 Ready for Discharge [RC] PER UNIT ROUTINE - Assessment Assessment:: 1)Vertigo -Will discharge to home with PT consult 2)Recent CVA S/P Craniotomy -CT stable, will have patient continue follow ups with Neuro and PCP -BPs low and patient on 2 antihypertensives, will have her continue nichole gement with PCP 3)Allergic Rhinitis
[2020-07-12] MEDS: CARVEDILOL 25 MG PO SCH (08:50)
[2020-07-12] MEDS: LEVETIRACETAM 1000 MG PO SCH (08:51)
== END 2020-07-12 09:00 | disposition home or self-care (01) ==
LOC: VM.ED 05:50 → VM.MS 08:18
PROVIDERS: ADMIT Nurse Practitioner; ATTEND Nurse Practitioner
DX: R42 Dizziness and giddiness (principal); R11.2 Nausea with vomiting, unspecified; J30.9 Allergic rhinitis, unspecified; E78.00 Pure hypercholesterolemia, unspecified; I10 Essential (primary) hypertension; F41.9 Anxiety disorder, unspecified; F32.9 Major depressive disorder, single episode, unspecified; J45.909 Unspecified asthma, uncomplicated; Z98.890 Other specified postprocedural states; Z88.2 Allergy status to sulfonamides; Z88.5 Allergy status to narcotic agent; Z88.8 Allergy status to other drugs, medicaments and biological substances; Z79.899 Other long term (current) drug therapy; Z86.73 Personal history of transient ischemic attack (TIA), and cerebral infarction without residual deficits
CPT/HCPCS: 36415; 70450; 80048; 80053; 81003; 82962; 83880; 84484; 85025; 85610; 93005; 99285-25; A9270-GY; G0378

== ENCOUNTER 2023-11-02 07:31 | Day surgery (SDC) | payer MEDICARE, OTHER ==
[2023-11-02] MEDS: Lactated Ringers 1,000 ML IV SCH (07:55)
[2023-11-02] MEDS ORDERED: Propofol 200 MG/20 ML SDV ONE (09:18)
[2023-11-02] MEDS ORDERED: Midazolam 1 MG/ML 2 ML SDV ONE (09:18)
[2023-11-02] MEDS ORDERED: fentaNYL 100 MCG/2 ML SDV ONE (09:18)
[2023-11-02 10:07] VITALS: BP 106/56; PULSE 58
== END 2023-11-02 10:41 | disposition home or self-care (01) ==
LOC: VM.SDS 07:31
PROVIDERS: ATTEND Family Medicine
DX: Q43.8 Other specified congenital malformations of intestine (principal); K64.9 Unspecified hemorrhoids; I10 Essential (primary) hypertension; K21.9 Gastro-esophageal reflux disease without esophagitis; Z79.899 Other long term (current) drug therapy; Z88.6 Allergy status to analgesic agent; Z88.5 Allergy status to narcotic agent; Z88.2 Allergy status to sulfonamides
CPT/HCPCS: 00812; 88305; J2250; J2704; J3010; J7120